=== PATIENT | male | born 1995 | race Caucasian/White ===

== ENCOUNTER 2019-04-07 05:06 | Emergency (ER) | payer SELFPAY ==
[~2019-04-07] VITALS: Ht 165.1 cm; Wt 54.4 kg
--- NOTE | 2019-04-07 05:12 | NUR ---
ED Nurse Note: Pt has SOB and anxiety attack, feels tight on chest area 1 hour ago. Pt is AO x 4times, VSS, on room air no distress. ERMD seen Pt at bedside.
[2019-04-07 05:33] VITALS: BP 124/75
--- NOTE | 2019-04-07 05:55 | Emergency Room Report ---
History of Present Illness General Chief Complaint: General Complaint Source: Patient Present Illness HPI Patient presents with a history of having increased anxiety today. He does not take any medication for this at this time. Patient also has a history of asthma and is requesting an albuterol inhaler. The fact he did not have one made his anxiety worse. Denies any fevers, chills, sore throat, productive cough, chest pain, nausea, vomiting, diarrhea, dysuria or muscle tightness. He denies suicidal or homicidal ideation. Allergies: Coded Allergies: PENICILLINS (Verified Allergy, Unknown, 04/07/19) Patient History Past Medical History: see triage record Social History: Denies: smoking Social History Narrative from home Reviewed Nursing Documentation: PMH: Agreed; PSxH: Agreed Nursing Documentation-PMH Past Medical History: No Stated History Review of Systems All Other Systems: negative except mentioned in HPI Physical Exam Vital Signs Date Time Temp Pulse Resp B/P (MAP) Pulse Ox O2 Delivery O2 Flow Rate FiO2 04/07/19 05:12 98.4 73 20 98 Room Air 04/07/19 05:33 124/75 Sp02 EP Interpretation: reviewed, normal General Appearance: well appearing, no apparent distress, GCS 15 Head: normocephalic, atraumatic Eyes: bilateral eye normal inspection, bilateral eye PERRL, bilateral eye EOMI ENT: hearing grossly normal, normal voice, moist mucus membranes Neck: full range of motion, supple Respiratory: chest non-tender, lungs clear, normal breath sounds, no respiratory distress, speaking full sentences Cardiovascular #1: regular rate, rhythm, no edema Cardiovascular #2: 2+ radial (L) Gastrointestinal: normal inspection, scaphoid Musculoskeletal: no calf tenderness Neurologic: alert, oriented x3, normal gait, grossly normal Psychiatric: mood/affect normal Skin: other - Acne Medical Decision Making Diagnostic Impression: Primary Impression: Anxiety ER Course Patient presents with 1 of his usual anxiety attacks requesting albuterol inhaler. Based on his physical exam pulmonary embolus is excluded. He is afebrile and infectious etiology is also excluded. His lungs are clear at this time and he does not do any breathing treatment. He denies suicidal or homicidal ideation. Albuterol inhaler as prescribed. Patient advised to return if not feeling well. Discussed the fact that he is not been treated with medication and he does not want any other medication for his anxiety. Patient stable for outpatient observation and treatment. Last Vital Signs Date Time Temp Pulse Resp B/P (MAP) Pulse Ox O2 Delivery O2 Flow Rate FiO2 04/07/19 06:00 98.3 20 124/75 98 Room Air 04/07/19 05:33 81 Status: unchanged Disposition: HOME, SELF-CARE Condition: Stable Scripts Albuterol Sulfate* (ALBUTEROL SULFATE MDI*) 8.5 Gm Hfa.aer.ad 2 PUFF INH Q6H, #1 EA 0 Refills Prov: Anjum Turner MD 04/07/19 Anjum Turner MD April 07, 2019 05:55
[2019-04-07] MEDS ORDERED: ALBUTEROL SULF8.5 GM INH (05:56)
[2019-04-07 06:00] VITALS: BP 124/75
--- NOTE | 2019-04-07 06:05 | NUR ---
ER DISCHARGE NOTE: Patient is cleared to be discharged per ERMD, pt is aox4, on room air, with stable vital signs. pt was given dc and prescription instructions, pt was able to verbalize understanding, pt id band removed without complications. pt is able to ambulate with steady gait. pt took all belongings.
== END 2019-04-07 06:17 | disposition home or self-care (01) ==
LOC: EMR 05:55
DX: F41.9 Anxiety disorder, unspecified (principal); Z88.0 Allergy status to penicillin; L70.9 Acne, unspecified
CPT/HCPCS: 99282